=== PATIENT | female | born 2000 ===

== ENCOUNTER → 2025-10-08 12:00 | Outpatient (BNV) | payer OTHER, SELFPAY | PROVIDERS: Visit Provider Internal Medicine | DX: I49.3 Ventricular premature depolarization (principal); I49.49 Other premature depolarization | CPT/HCPCS: 93244 ==

== ENCOUNTER → 2025-10-08 12:00 | Outpatient (REF) | payer OTHER, SELFPAY | LOC: HO.CARD 12:00 | PROVIDERS: Visit Provider Physician Assistant | DX: R42 Dizziness and giddiness (principal) | CPT/HCPCS: 93242 ==